=== PATIENT | male | born 1965 | race African-American/Black ===

== ENCOUNTER 2024-10-11 14:18 | Emergency (ER) | payer OTHER ==
[~2024-10-11] VITALS: Ht 180.3 cm; Wt 78.0 kg
[2024-10-11 14:20] VITALS: O2SAT 99
[2024-10-11] MEDS: ONDANSETRON HCL 4MG/2ML INJ IV ONE (15:27)
[2024-10-11] MEDS: FENTANYL CITRATE/PF 50MCG/ML 2ML VIAL IV ONE (15:28)
[2024-10-11] MEDS: LIDOCAINE HCL/EPINEPHRINE 1%-EPI 1:100,000 20ML VIAL INFIL ONE ×2 (15:37→18:15)
[2024-10-11] MEDS: TETANUS, DIPHTHERIA, PERTUSSIS VAC/PF 0.5ML (>10YR OLD) IM ONE (15:38)
[2024-10-11] MEDS: BACITRACIN ZINC OINT UDPKT TOP ONE (15:38)
[2024-10-11 15:53] LABS: CARBON DIOXIDE 12 mEq/L (21-32); CHLORIDE 126 mEq/L (98-107); POTASSIUM 4.1 mEq/L (3.5-5.1); SODIUM 147 mEq/L (136-145)
[2024-10-11] MEDS: FENTANYL CITRATE/PF 50MCG/ML 2ML VIAL IV STA (15:55)
[2024-10-11 15:57] LABS: CREATININE 0.5 mg/dL (0.6-1.3)
[2024-10-11 15:58] LABS: GLUCOSE 85 mg/dL (70-105); UREA NITROGEN BLOOD 8 mg/dL (9-23)
[2024-10-11 16:30] LABS: CALCIUM 4.6 mg/dL (8.7-10.4)
[2024-10-11 17:08] VITALS: TEMP 36.55848
[2024-10-11 17:19] LABS: BASOPHILS % 0.2 % (0.0-2.0); EOSINOPHILS % 0.2 % (0.0-5.0); HEMATOCRIT. 47.5 % (42.0-52.0); HEMOGLOBIN. 15.9 g/dL (14.0-18.0); LYMPHOCYTES % 8.8 % (20.0-50.0); MEAN CORPUSCULAR HEMOGLOBIN 31.3 pg (28.0-32.0); MEAN CORPUSCULAR HGB CONC 33.5 g/dL (31.0-37.0); MEAN CORPUSCULAR VOLUME 93.4 fL (80.0-94.0); MEAN PLATELET VOLUME 8.3 fl (7.4-10.4); MONOCYTES % 5.6 % (2.0-8.0); NEUTROPHILS % 85.2 % (40.0-76.0); PLATELET 329 x1000/uL (130-400); RED BLOOD CELL COUNT 5.09 mill/uL (4.7-6.1); RED CELL DISTRIBUTION WIDTH 14.5 % (11.6-14.6); WHITE BLOOD COUNT 10.1 x1000/uL (4.5-11.0)
[2024-10-11 17:29] LABS: PROTHROMBIN TIME 11.2 sec (9.6-11.0)
[2024-10-11] MEDS: IOHEXOL-350 100 ML BOTTLE ONE (17:53)
[2024-10-11 18:05] VITALS: BP 128/56; PULSE 76; RESP 16; O2SAT 98
[2024-10-12] MEDS ORDERED: IOHEXOL-350 100 ML BOTTLE ONE (00:06)
== END 2024-10-11 19:34 | disposition left against medical advice (07) ==
LOC: ER 14:18 → EDBEDREQ 15:56 → ER 19:34
DX: S61.511A Laceration without foreign body of right wrist, initial encounter (principal); W45.8XXA Other foreign body or object entering through skin, initial encounter; Y93.89 Activity, other specified; Y92.89 Other specified places as the place of occurrence of the external cause; Y99.8 Other external cause status
CPT/HCPCS: 80048; 85025; 85610; 36415; 73206; 12004; 96374; 96375; 99285; J3010; Q9967; J2004; J2405; Z7610; 90715